=== PATIENT | female | born 1990 | race Caucasian/White ===

== ENCOUNTER 2025-03-03 11:20 | Emergency (ER) | payer OTHER, SELFPAY ==
[2025-03-03 11:52] VITALS: BP 119/75
[2025-03-03 12:19] LABS: % Basophils 0.5 % (0-2); % Eosinophils 3.3 % (0-6); % Immature Granulocytes 0.3 % (0-0.5); % Monocytes 5.3 % (1.7-9.3); % Neutrophils 54.6 % (42.2-75.2); Absolute Eosinophils 0.3 10^3/uL (0-0.7); Absolute Lymphocytes 2.7 10^3/uL (1.2-3.4); Absolute Monocytes 0.4 10^3/uL (0.1-0.6); Absolute Neutrophils 4.1 10^3/uL (1.4-6.5); Hematocrit 39.8 % (37.0-47.0); Hemoglobin 13.8 g/dL (12.0-16.0); Mean Corp Hgb Conc. 34.7 g/dL (33.0-37.0); Mean Corpuscular Hgb 29.6 pg (27.0-31.0); Mean Corpuscular Volume 85.2 fL (81.0-99.0); Mean Platelet Volume 8.3 fL (7.4-10.4); Nucleated Red Blood Cells % 0 %; Platelet Count 239 10^3/uL (130-400); Red Blood Cell Count 4.67 10^6/uL (4.20-5.40); Red Cell Dist. Width 12.7 % (11.5-14.5); White Blood Cell Count 7.5 10^3/uL (4.8-10.8)
[2025-03-03 12:31] LABS: HCG, Serum Qualitative Screen Negative
[2025-03-03 12:33] LABS: D-Dimer 0.44 ug/mlFEU (0.00-0.50)
[2025-03-03 12:36] LABS: ALT (SGPT) 16 U/L (0-35); AST (SGOT) 22 U/L (14-36); Albumin 3.9 g/dl (3.5-5.0); Alkaline Phosphatase 47 U/L (38-126); Blood Urea Nitrogen 11 mg/dl (7-17); Carbon Dioxide 26 mmol/L (22-30); Chloride 108 mmol/L (98-107); Glucose 93 mg/dl (70-99); Lipase 105 U/L (23-300); Potassium 4.3 mmol/L (3.5-5.1); Sodium 140 mmol/L (135-145); Total Bilirubin 0.5 mg/dl (0.2-1.3); Total Protein 6.5 g/dl (6.3-8.2); eGFR > 60.00
[2025-03-03 12:45] LABS: Troponin I < 0.012 ng/ml
[2025-03-03] MEDS: TYLENOL 650 MG PO (15:05)
[2025-03-03 16:03] VITALS: BP 111/68
--- NOTE | 2025-03-03 16:35 | ED.GENMED ---
History of Present Illness
General
Chief Complaint: Chest Pain
Source: patient
Exam Limitations: none
Time Seen by Provider: 03/03/25 14:08
Nursing documentation reviewed up to this point in time: agreed with
History of Present Illness
History of Present Illness:
Patient presents to ED secondary to intermittent left upper back/neck pain radiating down arm over the past 2 months, along with development of chest pain over the past 1 week. Patient has been evaluated on multiple occasions by her primary care
physician. Patient was initially started on steroids along with ibuprofen, with mild improvement. Denies fever or chills. Denies direct trauma. Denies nausea or vomiting. Denies loss of sensation or weakness. Denies recent travel or surgery.
Denies leg pain or swelling. Denies family history of early heart disease or blood clots. Patient states that her symptoms started approximately 1 to 2 days after working out at the gym. Since then, patient has not gone back to gym.
Past History
Past History
ED Past Medical History: None
ED Past Surgical History: Orthopedic (2013 microdiskectomy)
Social History
Tobacco: Non-smoker
Alcohol: Occasional
Drug: None
Personal: Single
Living: with family
Review of Systems
Review of Systems
Allergies reviewed?: Yes
All Other Systems: ROS reviewed and negative except as documented in HPI and ROS
Constitutional: Reports no symptoms
Respiratory: Reports no symptoms
Cardiac: Reports chest pain
ABD/GI: Reports no symptoms; Denies vomiting or diarrhea
Musculoskeletal: Reports neck pain and back pain
Skin: Reports no symptoms
Neurological: Reports no symptoms; Denies dizzy, headache, weakness or numbness
Phy Exam
Physical Exam
Physical Exam:
Physical Exam
General: mild painful distress, not acutely ill. afebrile
Head: nc/at. eomi
Neck: supple. normal range of motion. no midline tenderness to palpation. mild left paracervical tenderness at level of C6-7, with associated with slight muscle spasm.
Heart: s1/s2 regular rate and rhythm
Lungs: no acute respiratory distress. clear bilaterally. mild anterior chest wall tenderness to palpation, without ecchymosis/swelling/erythema
Abdomen: normal bowel sounds. not tender.
Neuro: alert and oriented x 3. no focal neurological deficits
Skin: no rash
Psychiatric: well kept. interactive and cooperative
Extremities: no edema. no calf tenderness.
Scores
Heart Score for Chest Pain Patients
STEMI patient?: Not applicable
Course
Orders/Labs/Results
Orders:
Orders
03/03/25 11:22
Electrocardiogram (*1) Urgent
Reason for Study: Chest Pain
EKG- Treatment ONCE
03/03/25 12:01
Test Result ONCE
03/03/25 12:07
Complete Blood Count/With Diff Urgent
Comprehensive Metabolic Panel Urgent
D-Dimer Urgent
HCG, Serum Qualitative Screen Urgent
Lipase Urgent
Troponin I Urgent
03/03/25 14:51
Acetaminophen [Tylenol] 650 mg PO NOW STA
CR Cervical Spine 4 Or 5 Vw Urgent
Comment:
Reason For Exam: left sided neck pain
CR Chest - 2 Views Urgent
Comment:
Reason For Exam: chest pain
Abnormal Lab Results
03/03/25
12:07
Chloride 108 H mmol/L
(98-107)
03/03/25 12:07
03/03/25 12:07
Vital Signs
Initial and Last Documented VS:
Initial Vital Signs
Temp Pulse Resp BP Pulse Ox
98.3 F 77 16 119/75 98
03/03/25 11:52 03/03/25 11:52 03/03/25 11:52 03/03/25 11:52 03/03/25 11:52
Last Documented Vital Signs
Temp Pulse Resp BP Pulse Ox
98.3 F 69 16 111/68 98
03/03/25 11:52 03/03/25 16:03 03/03/25 16:03 03/03/25 16:03 03/03/25 16:03
MDM/Problems Addressed
MDM/Problems Addressed:
History and exam consistent with likely cervical radiculopathy along with component of costochondritis. Otherwise, patient remains afebrile, hemodynamically stable, and neurologically intact during observation.
Patient with an unremarkable workup in ED, including blood work and x-ray. Patient will be treated conservatively with a course of steroids along with tramadol, as needed for symptomatic relief. Patient advised to return to ED with worsening
symptoms. Otherwise, patient recommended to follow-up with primary care physician for reevaluation, including potential MRI cervical spine/thoracic spine, as outpatient, if symptoms persist. Patient expresses understanding at time of discharge.
*Critical Care Note
Total Time (30-74mins, 75-104mins- exclusive of procedures): Not Applicable
ED Attending Note
-
Portions of this chart may have been created with voice recognition software.� Occasional wrong word or��sound alike� substitutions may have occurred due to the inherent limitations of voice recognition software.
Discharge Plan
Departure
Patient Disposition: Home (Routine Discharge)
Date of Disposition: 03/03/25
Time of Disposition: 16:35
Patient with high blood pressure during this ER visit?: No
Condition: Good
Discharge Problem:
Musculoskeletal pain
Instructions: Musculoskeletal Pain
Prescriptions:
New
methylprednisolone [Medrol (Juarez)] 4 mg tablets,dose pack
4 mg PO ONCE Qty: 21 0RF
Rx Instructions:
Use as directed
tramadol 50 mg tablet
50 mg PO Q8H PRN (Reason: Pain) Qty: 14 0RF
Referrals:
Kelli Castellon, DO [Family Provider] -
Activity Restrictions/Additional Instructions:
As discussed, please follow-up with your primary care physician for continual evaluation and treatment, including potential MRI of your spine, if symptoms persist. Your prescriptions have been sent electronically to [facility] pharmacy in [place]
Interventions
Interventions:
*Risk Screen - Suicide Last Done: 03/03/25 11:52
*General Assessment Last Done: 03/03/25 11:52
*Neglect/Abuse Screening Last Done: 03/03/25 11:52
*ED- Fall Risk Assessment Last Done: 03/03/25 13:42
*ED COVID-19 Vaccine History Last Done: 03/03/25 11:58
*Nursing Disposition Last Done: 03/03/25 16:46
ED- Cardiac Assessment Last Done: 03/03/25 13:42
Discharge Date and Time
Discharge Date/Time: 03/03/25 16:47
Print Language: ROMANIAN
== END 2025-03-03 16:47 | disposition home or self-care (01) ==
LOC: EMR 11:20
PROVIDERS: Emergency Medicine; EMERGENCY PHYSICIAN Emergency Medicine; FAMILY PHYSICIAN Internal Medicine
DX: M79.18 Myalgia, other site (principal); R07.89 Other chest pain; M54.6 Pain in thoracic spine; M79.602 Pain in left arm; M54.2 Cervicalgia; M94.0 Chondrocostal junction syndrome [Tietze]; F41.9 Anxiety disorder, unspecified; F32.A Depression, unspecified
CPT/HCPCS: 99283; 71046; 72050; 80053; 83690; 84484; 84703; 85025; 85379; 93005